=== PATIENT | male | born 1960 | race Caucasian/White ===

== ENCOUNTER 2016-11-25 10:21 | Day surgery (SDC) | payer OTHER ==
--- NOTE | 2016-11-22 12:36 | HISTORY AND PHYSICAL E ---
History and Physical NAME: DOMO JURADO : 1960 AGE: 56Y ADMITTED: 11/25/2016 ROOM: CHIEF COMPLAINT: Colon screening. Patient did have colonoscopy in 2010 showing a 3-mm rectal polyp and hemorrhoids. The patient was referred by Dr. Ian Vásquez. The rectal polyp was a hyperplastic polyp. REVIEW OF SYSTEMS: CARDIAC: Negative. RESPIRATORY: Negative. ENDOCRINE: Negative. FAMILY HISTORY: Father is alive and well. Mom is alive, has heart disease. SOCIAL HISTORY: , does not smoke, drinks rarely. PAST SURGICAL HISTORY: None. MEDICATIONS: 1. Zyrtec. 2. Motrin. PHYSICAL EXAMINATION: GENERAL: Pleasant, alert, oriented. VITAL SIGNS: Blood pressure is 120/80, pulse 80, respirations 20, temp is 98. HEENT: Normal. NECK: Supple. LUNGS: Clear. ABDOMEN: Soft. NEUROLOGIC: Exam negative. CONCLUSIONS: Patient presented at this time for colon screening, admit 11/25/2016. DICTATING PHYSICIAN: NIKKI SCHMIDT M.D. 1209M [id number] PHY#: [id number] ID: [id number] JOB#: [id number] ACCT: [id number] cc:IAN VÁSQUEZ M.D., MAHMOUD M.D. >
[2016-11-25] MEDS ORDERED: GLYCOPYRROLATE INJ 0.4 MG/2 ML VIAL ONE (10:44)
[2016-11-25] MEDS ORDERED: ONDANSETRON HCL INJ/PF 4 MG/2 ML SDV ONE (10:44)
[2016-11-25] MEDS ORDERED: LIDOCAINE 2% JELLY 30 ML TUBE ONE (10:44)
[2016-11-25] MEDS ORDERED: NALOXONE HCL INJ/PF 0.4 MG/1 ML SDV ONE (10:44)
[2016-11-25] MEDS ORDERED: EPINEPHRINE INJ 1 MG/10 ML DISP.SYRIN ONE (10:45)
[2016-11-25] MEDS ORDERED: GLUCAGON,HUMAN RECOMB 1 MG INJ ONE (10:45)
[2016-11-25] MEDS ORDERED: FLUMAZENIL INJ 0.5 MG/5 ML VIAL IV ONE (10:45)
[2016-11-25] MEDS ORDERED: FENTANYL CITRATE INJ/PF 100 MCG/2 ML AMPUL ONE (10:45)
[2016-11-25] MEDS: MIDAZOLAM 2 MG/2 ML INJ ONE ×3 (11:05→11:12)
[2016-11-25 12:48] VITALS: BP 101/59
--- NOTE | 2016-11-25 12:59 | OPERATIVE REPORT E ---
Operative Report NAME: DOMO JURADO : 1960 AGE: 56Y DATE OF SURGERY: 11/25/2016 ROOM: PREOPERATIVE DIAGNOSIS: Colon screening. POSTOPERATIVE DIAGNOSIS: Rectal polyps. PROCEDURE: Colonoscopy. SURGEON: NIKKI SCHMIDT M.D. TISSUE REMOVED OR ALTERED: Biopsy rectal polyps: One polyp in the proximal rectal 2 mm, biopsy obtained. One polyp, 2 mm, in the distal rectum, biopsy obtained. DESCRIPTION OF PROCEDURE: RECTUM: Again, rectal exam: Two small, tiny polyps. SIGMOID AND DESCENDING COLON: Normal. TRANSVERSE COLON: Normal. ASCENDING COLON: Normal. CECUM: Normal. Scope withdrawn from cecum, ascending, transverse, descending, sigmoid, all the way to the rectum. CONCLUSION: Polyps in the rectum, benign looking, removed by biopsy. PLAN: Recommend followup colonoscopy after 2-3 years pending biopsy results. DICTATING PHYSICIAN: NIKKI SCHMIDT M.D. 1819M 1153 PHY#: [id number] ID: [id number] JOB#: [id number] ACCT: [id number] cc:[facility] ABDILEEANEN GRAHAM M.D., NIKKI Palacios , [facility]
--- NOTE | 2016-11-25 12:59 | DISCHARGE SUMMARY E ---
Discharge Summary NAME: DOMO JURADO : 1960 AGE: 56Y ADMITTED: 11/25/2016 DISCHARGED: 11/25/2016 FINAL DIAGNOSIS: Rectal polyps. HISTORY: Patient is 56, had colonoscopy in 2010: 3 mm polyp was hyperplastic. He did have mild hemorrhoids at that time. Today's colonoscopy shows a small one 2 mm polyp in the proximal rectum and one 2 mm polyp in the distal rectum. Both were removed by biopsy. DISCHARGE PLAN: 1. Soft diet. 2. Hold aspirin and nonsteroidals. 3. Consideration followup colonoscopy in 2 years. DICTATING PHYSICIAN: NIKKI SCHMIDT M.D. 1819M 1158 PHY#: [id number] ID: [id number] JOB#: [id number] ACCT: [id number] cc:LEEANNE VÁSQUEZ M.D., MAHMOUD M.D. >
== END 2016-11-25 12:40 | disposition home or self-care (01) ==
LOC: END 10:21
PROVIDERS: ATTEND Specialist
PROC: 0DBP8ZX Excision of Rectum, Via Natural or Artificial Opening Endoscopic, Diagnostic (ICD-10-PCS; principal; 2016-11-25 11:50)
DX: Z12.11 Encounter for screening for malignant neoplasm of colon (principal); D12.8 Benign neoplasm of rectum; Z79.899 Other long term (current) drug therapy; Z79.1 Long term (current) use of non-steroidal anti-inflammatories (NSAID)
CPT/HCPCS: 45380; 88305 ×2; J2250; J3010; J1610; J2405; J0171; J2310; J3490